=== PATIENT | male | born 1995 | race American Indian/Alaskan Native ===

== ENCOUNTER 2016-09-12 14:14 | Emergency (ER) | payer OTHER, BC ==
[2016-09-12] MEDS: MOTRIN PO ONE (18:09)
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
[2016-09-12 18:56] VITALS: BP 126/70
== END 2016-09-12 18:55 | disposition home or self-care (01) ==
LOC: ED 14:14
DX: M54.5 Low back pain (principal); M79.605 Pain in left leg; V43.62XA Car passenger injured in collision with other type car in traffic accident, initial encounter; W22.12XA Striking against or struck by front passenger side automobile airbag, initial encounter; Y93.89 Activity, other specified; Y99.9 Unspecified external cause status; Y92.488 Other paved roadways as the place of occurrence of the external cause
CPT/HCPCS: 99282